=== PATIENT | male | born 1965 | race Caucasian/White ===

== ENCOUNTER 2025-02-10 00:13 | Day surgery (SDC) | payer OTHER, SELFPAY ==
--- OUTSIDE RECORDS SUMMARY | 2003-10-16 09:45 | XMS_ITS | Continuity of Care Document ---
Author Organization [facility] Address [address] [place] [address] [address] [place] [address] Phone Care Team Providers Care Groundskeeping Yardman Name Role Phone Sebas Nielsen DO Unavailable Unavailable Advance Directives Directive Yes / No Effective Date File Name No Information Encounters Encounter Description Practice Location Reason(s) For Visit Diagnoses Date Provider Providers Copied on Encounter [employer], [address] [place] [address] [address], [place], [place], [id number], [place] tel:[phone] [facility] No Information Gia Durham. [address] [place], [address], [place]. tel: [phone] Family History Family Member Type Diagnosis Age At Onset No Information Payers Payer name Insurance type Covered libertarian ID Authoriza tion(s) No Information Social History Type Description Quantity Date Captured Comments Sex Male Smoking Status No Information Chief Complaint And Reason For Visit No Information Reason For Referral Reason For Referral No Information History Of Present Illness Encounter Date Complaint History Of Prese nt Illness No Information Functional Status Date Functional Assessmen t No Information Instructions Date Instruction Additional Infor mation No Information Assessments Type Assessment Date No Information Patient Care Teams Name Effective Dates (start - stop) Status Members No Information
[2025-02-01 11:08] VITALS: BMI 22.9
--- OUTSIDE RECORDS SUMMARY | 2025-02-10 00:17 | XMS_ITS | Patient Health Record ---
Author Organization [facility] Address [address] [place] [address] Care Team Providers Care Heater Helper Forge Name Role Phone Levi Moss Primary Care Provider [phone] Delmar Keller Unavailable [phone] Allergies Allergen (clinical drug ingredient) Drug/Non Drug Allergy documented on EMR Reaction Allergy Type Onset Date Status Erythrocin rash Drug Allergy Active Reason For Referral No Information Social History Tobacco Use: Social History Observation Description Date Details (start date - stop date) Never Smoker NA - NA Tobacco Control (Standard) Question Answer Notes Tobacco use: Nonsmoker Section Notes: Problems Problem Type SNOMED Code ICD Code Onset Dates Problem Status W/U Status Risk Notes Problem Cardiac arrhythmia (212295106) Irregular heart rate (I49.9) Active confirmed Vital Signs Heart Rate 50 /min 01/18/2025 Temperature 97.9 degrees Fahrenheit 01/18/2025 Respiratory Rate 16 /min 01/18/2025 Blood pressure diastolic 60 mm Hg 01/18/2025 Oximetry 98 % 01/18/2025 Height 5 ft 10 in in 01/18/2025 Blood pressure systolic 98 mm Hg 01/18/2025 Weight 165 lbs 01/18/2025 BMI 23.67 kg/m2 01/18/2025 Encounters Encounter Location Date Provider Diagnosis [facility] [address] [place] [address] 01/18/2025 Delmar Keller Encounter to establish care with new doctor Z76.89 and Irregular heart rate I49.9 Assessments Encounter Date Diagnosis (ICD Code) Assessment Notes Treatment Notes Treatment Clinical Notes Section Notes 01/18/2025 Encounter to establish care with new doctor (ICD-10 - Z76.89) 01/18/2025 Irregular heart rate (ICD-10 - I49.9) Patient was advised he needs an EKG Plan Of Treatment No Information Insurance Providers Payer Name Payer Address Payer Phone Subscriber Number Group Number Insured Name Patient Relationship to Insured Coverage Start Date Coverage End Date [employer] [address] [place] [address] [id number] Herman Dowell Self - patient is the insured 8 Medical (General) History Surgical History Surgery Date(Month/Year) growth removed from right kapoor 1983
--- OUTSIDE RECORDS SUMMARY | 2025-02-10 00:17 | XMS_ITS | Clinical Summary ---
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
--- OUTSIDE RECORDS SUMMARY | 2025-02-10 00:17 | XMS_ITS | Patient Health Record ---
Author Organization [facility] Address [address] [place], [place] [id number] Care Team Providers Care International Account Executive Name Role Phone FREDDY ROBERTO DO Primary Care Provider UnavailAngelina Vides Unavailable [phone] Allergies Allergen (clinical drug ingredient) Drug/Non Drug Allergy documented on EMR Reaction Allergy Type Onset Date Status erythromycin Erythromycin Unknown Drug Allergy A ctive Reason For Referral No Information Immunizations Vaccine Route Administration Date Status Comme nts Influenza, unspecified formu lation (CPT 93645 Inactive) Unknown 12/08/2018 Administered Pneumococcal polysaccharide PPV23 Unknown 12/22/2019 Re fused Influenza, unspecified formu lation (CPT 46400 Inactive) Unknown 12/10/2022 Refused Pneumococcal polysaccharide PPV23 Unknown 12/10/2022 Re fused Influenza, unspecified formu lation (CPT 36667 Inactive) Unknown 11/29/2024 Refused Pneumococcal polysaccharide PPV23 Unknown 11/29/2024 Re fused Social History Tobacco Use: Social History Observation Description Date Details (start date - stop date) Never Smoker NA - NA Tobacco Use/Smoking Question Answer Notes Are you a nonsmoker Problems Problem Type SNOMED Code ICD Code Onset Dates Problem Status W/U Status Risk Notes Problem Verruca vulgaris (66218071) Viral wart, unspecified (B07.9) Active confirmed Patient says these lesions come and go and does not want to have them treated at this time. 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 Patient was warned of the side effects including large blisters, pain, scarring, secondary infection and recurrence. Patient was instructed to bathe normally and treat with topical antibiotics and a bandage once the blisters unroof and the sites are healed. Written instructions were given. Problem Multiple benign melanocytic nevi (045511665) Multiple nevi (D22.9) Active confirmed Went over with patient how to monitor lesions for changes indicative of malignancy and sun protection methods. Vital Signs Weight 170 lbs 11/29/2024 Encounters Encounter Location Date Provider Diagnosis [facility] [address] [place], [place] [id number] 11/29/2024 Angelina Franco Neoplasm of uncertai n behavior D48.9 ; Multiple nevi D22.9 ; Actinic keratoses L57.0 and Viral wart, unspecified B07.[address] [facility] [address] [place], [place] 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 Patient tolerated the procedure well and was given postoperative written instructions. Patient will contact office if any signs of infection, hypersensitivity reaction or contact dermatitis develop. 11/29/2024 Multiple nevi (ICD-10 - D22.9) Went over with patient how to monitor lesions for changes indicative of malignancy and sun protection methods. 11/29/2024 Actinic keratoses (ICD-10 - L57.0) Lesions were treated with cryotherapy for 15 seconds a piece today in my office as per procedure note.. Patient was warned of the side effects including large blisters, pain, scarring, secondary infection and recurrence. Patient was instructed to bathe normally and treat with topical antibiotics and a bandage once the blisters unroof and the sites are healed. Written instructions were given. 11/29/2024 Viral wart, unspecified (ICD-10 - B07.9) Patient says these lesions come and go and does not want to have them treated at this time. Plan Of Treatment Pending Test Test Name Order Date Skin, Shave Biopsy 11/29/2024 Insurance Providers Payer Name Payer Address Payer Phone Subscriber Number Group Number Insured Name Patient Relationship to Insured Coverage Start Date Coverage End Date [facility] [address] [address] [place], [place] [id number] [id number] Self - patient is the insured Medical (General) History Medical History History ICD Code Colitis
--- OUTSIDE RECORDS SUMMARY | 2025-02-10 00:17 | XMS_ITS | Clinical Summary ---
Author Organization [facility] Address [address] [place] [address] Care Team Providers Care Mini Baccarat Dealer Name Role Phone Frankie Iglesias DO Primary Care Provider [phone] Source Comments [facility],non-owned Affiliates and Associated Physician Practices is amultiple site organization consisting of ambulatory clinics and hospital sitesin [place], [place] and [place]. This disclosure is being madepursuant to the Care Everywhere program and may not contain all information available regarding this patient. 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 Gender Identity Not on file Sexual Orientation Not on file Plan of Treatment Health Maintenance Due Date Last Done Comments COLOGUARD (AGES 45-75) - COL ON CA SCREENING 1965 COLON MONITORING 1965 COLONOSCOPY - COLON CA SCREENING 1965 CT COLONOGRAPHY - COLON CA SCREENING 1965 Colorectal Cancer Screening 1965 FIT - COLON CA SCREENING 1965 FLEX SIG - COLON CA SCREENING 1965 LIPID TESTING 1965 HIV SCREENING 1980 HEPATITIS C SCREENING 12/15/1983 DTAP/TDAP/TD VACCINES (1 - Tdap) 1984 HEPATITIS B VACCINE (1 of 3 - 19+ 3-dose series) 1984 PNEUMOCOCCAL VACCINE 50+ (1 of 1 - PCV) 12/20/2015 ZOSTER VACCINE (1 of 2) 12/20/2015 DEPRESSION SCREENING 04/27/2024 COVID-19 VACCINE (1 - 2023-2 5 season) 2024 INFLUENZA VACCINE (#1) 2024 HIB VACCINE Aged Out No longer eligi ble based on patient's age to complete this topic HPV VACCINE Aged Out No longer eligi ble based on patient's age to complete this topic MENINGOCOCCAL (Group B) VACC INE SHARED DECISION-MAKING Aged Out No longer eligibl e based on patient's age to complete this topic MENINGOCOCCAL GROUPS A/C/Y/W VACCINE Aged Out No longer eligible b ased on patient's age to complete this topic Care Teams Mini Baccarat Dealer Relationship Specialty Start Date End Date Frankie Iglesias DO PCP - General 03/11/22
--- OUTSIDE RECORDS SUMMARY | 2025-02-10 00:18 | XMS_ITS | Data Portability ---
Author Organization [facility] Address [address] [place] [address] Care Team Providers Care Parts Identifier Name Role Phone FREDDY CURRY Primary Care Provider [phone] Assessment Encounter Date Assessment Date Assessment LastModified by Organization Details LastModified Time 10/25/2024 10/25/2024 His history is suggestive of colitis the etiology of which is not clear I think that it is prudent for him to have a stat CT abdomen and pelvis to get delineated where we are as far as any inflammatory processes microabscesses or other pathology intra-abdominally Augmentin 875 b.i.d. brat diet blood work reviewed. About 4-6 weeks he will need a colonoscopy me know in a few days how he is doing Not available 10/25/2024 15:44:50 12/07/2024 12/07/2024 We will set him up with a colonoscopy for his colitis he is now awhile out I think it is safe to have the colonoscopies see me in a year Not available 12/11/2024 20:06:57 Plan of Treatment Reminders Order Date Submit Date Provider Last Modified By Organization Details Last Modified Time Details Appointments None recorded. Lab PSA, total, serum or plasma 2024 025 [facility] (Centralized Electronic Ordering - All Locations), Patient Can Go To The Location Of Their Choice, [address] 17:54:34 SARS CoV 2 RNA (COVID-19) , QL, rn case manager-PCR, respirator y specimen - pierce barbosa @ noon 2019 020 [facility] (Lab), [address], [place], [address], 0 16:55:34 Referral None recorded. Procedures colonoscop y procedure (PROC) 2024 025 [facility] - Gastroenterol [facility]gy, [address], [address], [place], [address], 5 10:46:56 Surgeries None recorded. Imaging CT, abdomen + pelvis, w/ contrast 2024 025 [facility] ([facility] Call Scheduling), [address], [place], [address], 5 19:26:04 Medication Orders None recorded. Patient TargetsNo targets recorded. Patient Instructions Encounter Date Encounter Id Patient Instructions Last Modified By Organization Details Last Modified Time 10/05/2019 [id number] Reviewed the following recommendations: -Stay home and separate from others as much as possible. -Monitor your symptoms and seek medical attention for trouble breathing, persistent chest pain, confusion, or bluish lips or face. -Wear a mask if you must be around other people. -Wash your hands often for 20 seconds with soap and water and clean high-touch surfaces daily -You may discontinue home isolation if your symptoms are improving, it has been 10 days since symptoms started, and you have been fever free for at least 3 days. [email or web address] Not available 10/05/2019 11:24:18 10/25/2024 [id number] A healthy lifestyle: care instructions [email or web address] Not available 10/25/2024 17:30:59 12/07/2024 [id number] eating healthy foods: care instructions [email or web address] Not available 12/07/2024 16:20:44 Reason for Referral None Reported. Results Created Date Observation Date Name Description Value Unit Range Abnormal Flag Note LastModifiedBy Organization Detail LastModifiedTime 10/05/19 20 10/05/2019 SARS CoV 2 RNA (COVI D-19) , QL, rn case manager-P CR, respi rator y speci men sars - cov - 2 PCR NEGATI VE mL Not Available [facility] (Lab) [address] [facility], [place], [address], 10/19/2019 06:48:51 10/05/19 20 10/05/2019 SARS CoV 2 RNA (COVI D-19) , QL, rn case manager-P CR, respi rator y speci men covidcom1 COMME NTS: This assay is desig neal to detec t the RdRp and N genes of SARS- CoV-2 using nucle ic acid ampli ficat ion. A negat mary resul t does not precl ude the possi bilit y of 2019- nCoV infec tion since the adequ acy of sampl e colle ction and/o r low viral burde n may resul t in the prese nce of viral nucle ic acids level s below the sydni tical sensi tivit y of this test metho d. Not Available [facility] (Lab) [address] [facility], [place], [address], 10/19/2019 06:48:51 10/05/19 20 10/05/2019 SARS CoV 2 RNA (COVI D-19) , QL, rn case manager-P CR, respi rator y speci men covidcom2 Posit mary resul ts are indic ative of the prese nce of SARS- CoV-2 RNA and do not rule out bacte rial infec tion or co-in fecti on with other virus es. Not Available [facility] (Lab) [address] [facility], [place], [address], 10/19/2019 06:48:51 10/05/19 20 10/05/2019 SARS CoV 2 RNA (COVI D-19) , QL, rn case manager-P CR, respi rator y speci men covidcom3 Test resul ts shoul d be used along with other clini carlos obser vatio ns, patie nt histo ry, epide miolo gical infor matio n and labor atory data in rupa wesley the diagn osis. Not Available [facility] (Lab) [address] [facility], [place], [address], 10/19/2019 06:48:51 10/05/19 20 10/05/2019 SARS CoV 2 RNA (COVI D-19) , QL, rn case manager-P CR, respi rator y speci men covidcom4 This test has recei bryce FDA Emerg ency Use Autho rizat ion and has been verif ied by [facility] . This test is only autho rized for the durat ion of the decla ratio n and the circu mstan rafaela that exist to justi fy the autho rizat ion of the emerg ency use of in vitro diagn ostic tests for the detec tion of SARS- CoV-2 virus and/o r diagn osis of COVID -19 infec tion under secti on 564 (b) (1) of the Act. 11 U.S.C . 360bb b-3 (b) (1), unles s the autho rizat ion is termi nated or revok ed soone r. Not Available [facility] (Lab) [address] [place], [address], 10/19/2019 06:48:51 10/05/19 20 10/05/2019 SARS CoV 2 RNA (COVI D-19) , QL, rn case manager-P CR, respi rator y speci men covidcom5 [facility] is certi fied under CLIA- 88 as quali fied to perfo rm high compl exity testi ng. This testi ng was perfo rmed in the [facility] [place] [address] (CLIA Licen se #[id number], CAP #[id number], AU-ID #[id number]). Not Available [facility] (Lab) [address] [place], [address], 10/19/2019 06:48:51 10/05/19 20 10/05/2019 SARS CoV 2 RNA (COVI D-19) , QL, rn case manager-P CR, respi rator y speci men covidcom6 Facts heet for healt hcare provi ders: https ://ww w.fda .gov/ media /1362 56/do wnloa d Facts heet for patie nts: https ://ww w.fda .gov/ media /1362 57/do wnloa d Not Available [facility] ([facility]) [address], [place], [address], 10/19/2019 06:48:51 03/27/20 22 03/27/2022 CBC W Diffe renti al panel , metho d unspe cifie d - Blood white blood cells text: 4.2-10 .8 Not Available Not Available 10/26/2024 16:16:40 03/27/20 22 03/27/2022 CBC W Diffe renti al panel , metho d unspe cifie d - Blood red blood cells text: 4.10-5 .80 Not Available Not Available 10/26/2024 16:16:40 03/27/20 22 03/27/2022 CBC W Diffe renti al panel , metho d unspe cifie d - Blood hemoglobin text: 13.2-1 7.0 Not Available Not Available 10/26/2024 16:16:40 03/27/20 22 03/27/2022 CBC W Diffe renti al panel , metho d unspe cifie d - Blood hematocrit text: 39.3-5 0.0 Not Available Not Available 10/26/2024 16:16:40 03/27/20 22 03/27/2022 CBC W Diffe renti al panel , metho d unspe cifie d - Blood mean red cell volume text: 80.0-9 7.0 Not Available Not Available 10/26/2024 16:16:40 03/27/20 22 03/27/2022 CBC W Diffe renti al panel , metho d unspe cifie d - Blood mean red cell hemoglobin text: 27.0-3 3.0 Not Available Not Available 10/26/2024 16:16:40 03/27/20 22 03/27/2022 CBC W Diffe renti al panel , metho d unspe cifie d - Blood mean RBC HGB concentratio n text: 31.0-3 6.0 Not Available Not Available 10/26/2024 16:16:40 03/27/20 22 03/27/2022 CBC W Diffe renti al panel , metho d unspe cifie d - Blood red cell distribution width text: 11.8-1 5.5 Not Available Not Available 10/26/2024 16:16:40 03/27/20 22 03/27/2022 CBC W Diffe renti al panel , metho d unspe cifie d - Blood platelets text: 150-40 0 Not Available Not Available 10/26/2024 16:16:40 03/27/20 22 03/27/2022 CBC W Diffe renti al panel , metho d unspe cifie d - Blood mean platelet volume text: 9.0-12 .4 Not Available Not Available 10/26/2024 16:16:40 03/27/20 22 03/27/2022 CBC W Diffe renti al panel , metho d unspe cifie d - Blood neutrophils text: 39.0-7 2.0 Not Available Not Available 10/26/2024 16:16:40 03/27/20 22 03/27/2022 CBC W Diffe renti al panel , metho d unspe cifie d - Blood lymphocytes text: 16.0-4 7.0 Not Available Not Available 10/26/2024 16:16:40 03/27/20 22 03/27/2022 CBC W Diffe renti al panel , metho d unspe cifie d - Blood monocytes text: 5.0-12 .0 Not Available Not Available 10/26/2024 16:16:40 03/27/20 22 03/27/2022 CBC W Diffe renti al panel , metho d unspe cifie d - Blood eosinophils text: 1.0-7. 0 Not Available Not Available 10/26/2024 16:16:40 03/27/20 22 03/27/2022 CBC W Diffe renti al panel , metho d unspe cifie d - Blood basophils text: 0.0-2. 0 Not Available Not Available 10/26/2024 16:16:40 03/27/20 22 03/27/2022 CBC W Diffe renti al panel , metho d unspe cifie d - Blood immature granulocytes text: 0.00-0 .50 Not Available Not Available 10/26/2024 16:16:40 03/27/20 22 03/27/2022 CBC W Diffe renti al panel , metho d unspe cifie d - Blood neutrophils, absolute count text: 1.5-8. 0 Not Available Not Available 10/26/2024 16:16:40 03/27/20 22 03/27/2022 CBC W Diffe renti al panel , metho d unspe cifie d - Blood lymphocytes, absolute count text: 1.07-3 .43 Not Available Not Available 10/26/2024 16:16:40 03/27/20 22 03/27/2022 CBC W Diffe renti al panel , metho d unspe cifie d - Blood monocytes, absolute count text: 0.29-0 .99 Not Available Not Available 10/26/2024 16:16:40 03/27/20 22 03/27/2022 CBC W Diffe renti al panel , metho d unspe cifie d - Blood eosinophils, absolute count text: 0.02-0 .53 Not Available Not Available 10/26/2024 16:16:40 03/27/20 22 03/27/2022 CBC W Diffe renti al panel , metho d unspe cifie d - Blood basophils, absolute count text: 0.01-0 .08 Not Available Not Available 10/26/2024 16:16:40 03/27/20 22 03/27/2022 CBC W Diffe renti al panel , metho d unspe cifie d - Blood immature granulocytes ,absolute text: 0.00-0 .05 Not Available Not Available 10/26/2024 16:16:40 03/27/20 22 03/27/2022 CBC W Diffe renti al panel , metho d unspe cifie d - Blood nucleated red blood cells text: -0 Not Available Not Available 10/26/2024 16:16:40 03/27/20 22 03/27/2022 CBC W Diffe renti al panel , metho d unspe cifie d - Blood NRBC# Not Available Not Availa ble 10/26/2024 16:16:40 03/27/20 22 03/27/2022 Compr ehens mary metab olic 1999 panel - Serum or Plasm a sodium text: 137-14 5 Not Available Not Available 10/26/2024 16:16:39 03/27/20 22 03/27/2022 Compr ehens mary metab olic 2000 panel - Serum or Plasm a potassium text: 3.5-5. 1 Not Available Not Available 10/26/2024 16:16:39 03/27/20 22 03/27/2022 Compr ehens mary metab olic 2000 panel - Serum or Plasm a chloride text: 98-107 Not Available Not Available 10/26/2024 16:16:39 03/27/20 22 03/27/2022 Compr ehens mary metab olic 2000 panel - Serum or Plasm a carbon dioxide text: 22-30 high Not Available Not Available 10/26/2024 16:16:39 03/27/20 22 03/27/2022 Compr ehens mary metab olic 2000 panel - Serum or Plasm a anion gap text: 14-22 low Not Available Not Available 10/26/2024 16:16:39 03/27/20 22 03/27/2022 Compr ehens mary metab olic 2000 panel - Serum or Plasm a glucose text: 70-99 Not Available Not Available 10/26/2024 16:16:39 03/27/20 22 03/27/2022 Compr ehens mary metab olic 2000 panel - Serum or Plasm a BUN text: 8-19 Not Available Not Available 10/26/2024 16:16:39 03/27/20 22 03/27/2022 Compr ehens mary metab olic 2000 panel - Serum or Plasm a creatinine text: 0.66-1 .25 Not Available Not Available 10/26/2024 16:16:39 03/27/20 22 03/27/2022 Compr ehens mary metab olic 2000 panel - Serum or Plasm a GFR >60 Refer ence Range : [place] ge GFR Healt hy Adult : >60 mL/mi n/1.7 3 m2 Chron ic Kidne y Disea se: 15-60 mL/mi n/1.7 3 m2 Kidne y Failu re: <15/m L/min /1.73 m2 www.n iddk. nih.g ov The MDRD study equat ion has not been valid ated in child georges <18 years of age; pregn ant women ; the elder ly >85 years of age; or in some racia l or ethni c subgr oups, such as Hispaula nics. Outsi de the valid ated jessica eters , estim ated GFR is less accur ate, requi ring clini carlos judgm ent on a case- by-ca se basis . Clini carlos inter preta tion for other races and ages must be made by the clini raghav. The MDRD study equat ion has not been valid ated for the evalu ation of serum creat inine relat ed to nutri demi l statu s or medic ation usage . For perso ns <18 years of age, a pedia tric GFR calcu lator is avail able on the [facility] websi te: https ://franco jones.sandro lockhart.o rg/pr ofess ional s/kdo qi/gf r_cal culat or Not Available Not Available 10/26/2024 16:16:39 03/27/20 22 03/27/2022 Compr ehens mary metab olic 1999 panel - Serum or Plasm a alkaline phosphatase text: 38-126 Not Available Not Available 10/26/2024 16:16:39 03/27/20 22 03/27/2022 Compr ehens mary metab olic 2000 panel - Serum or Plasm a alanine aminotransfe rase text: 0-50 Not Available Not Available 10/26/2024 16:16:39 03/27/20 22 03/27/2022 Compr ehens mary metab olic 2000 panel - Serum or Plasm a aspartate aminotransfe rase text: 15-46 Not Available Not Available 10/26/2024 16:16:39 03/27/20 22 03/27/2022 Compr ehens mary metab olic 2000 panel - Serum or Plasm a bilirubin, total text: 0.20-1 .30 Not Available Not Available 10/26/2024 16:16:39 03/27/20 22 03/27/2022 Compr ehens mary metab olic 2000 panel - Serum or Plasm a calcium text: 8.4-10 .2 Not Available Not Available 10/26/2024 16:16:39 03/27/20 22 03/27/2022 Compr ehens mary metab olic 1999 panel - Serum or Plasm a total protein text: 6.3-8. 2 Not Available Not Available 10/26/2024 16:16:39 03/27/20 22 03/27/2022 Compr ehens mary metab olic 2000 panel - Serum or Plasm a albumin text: 3.4-5. 0 Not Available Not Available 10/26/2024 16:16:39 03/27/20 22 03/27/2022 Compr ehens mary metab olic 2000 panel - Serum or Plasm a globulin text: 2.6-4. 2 Not Available Not Available 10/26/2024 16:16:39 03/27/20 22 03/27/2022 Compr ehens mary metab olic 2000 panel - Serum or Plasm a A/G ratio text: 1.0-2. 0 Not Available Not Available 10/26/2024 16:16:39 03/27/20 22 03/27/2022 Lipid 1996 panel - Serum or Plasm a triglyceride s text: 0-150 NIH ADRIANNA NSUS REPOR T RECOM MENDA TION FOR TRIGL YCERI SHWETA: ADULT CHILD LOW RISK: <150 ----- BODER LINE: 150-1 99 ----- HIGH RISK: >200 ----- Not Available Not Available 10/26/2024 16:16:39 03/27/20 22 03/27/2022 Lipid 1996 panel - Serum or Plasm a HDL cholesterol text: 40- Not Available Not Available 10/26/2024 16:16:39 03/27/20 22 03/27/2022 Lipid 1996 panel - Serum or Plasm a cholesterol in LDL [mass/volume ] in serum or plasma text: 0-130 NIH ADRIANNA NSUS REPOR T RECOM MENDA TIONS FOR LDL: ADULT CHILD LOW RISK <130 <110 (OPTI MAL LDL) <100 ----- BORDE RLINE : 130-1 59 ----- HIGH RISK: >160 >130 A TRIGL YCERI DE RESUL T >400 INVAL IDATE S THE CALCU LATIO N FOR LDL FRACT IONAT ION - THE LDL RESUL T WILL NOT BE REPOR DANIELLA. Not Available Not Available 10/26/2024 16:16:39 03/27/20 22 03/27/2022 Lipid 1996 panel - Serum or Plasm a cholesterol text: 140-19 9 high NIH ADRIANNA NSUS RECOM MENDA TION FOR JORGE STERO L: ADULT CHILD LOW RISK: <200 <170 BORDE RLINE : <200- 239 ----- HIGH RISK: >240 >200 Not Available Not Available 10/26/2024 16:16:39 12/08/19 25 12/15/2024 PROST ATE SPECI FIC ANTIG EN prostate specific antigen 1.061 NG/mL This PSA resul t was deter mined using the Beckm an chemi lumin ometr ic immun oassa y and value s obtai neal canno t be evalu ated inter weir eably with diffe rent assay metho ds or kits. This PSA resul t alone canno t be inter prete d as absol arturo evide nce of the prese nce or absen ce of disea se. Refer ence Range : >=40y : 97% of contr ols are <4.0. PSA level s have been repor daniella to corre late with prost ate size. Value s >4.0 are commo n in patie nts with prost atic hyper plasi a. Not Available [facility] [address] [facility], [place], [address], 12/16/2024 06:15:26 10/26/1910/25/2024 CT, abdom en + pelvi s, w/ contr ast No observ ation record ed. [facility] [address] [place], [address], 10/26/2024 13:15:13 Result Notes None recorded. Problems Name Problem SNOMED Code Status Onset Date Resolution Date Notes Provider Name and Address Organization Details Recorded Time Abdominal pain 53663288 Active 2024 PAULIE Kelly, [place] - [facility] 12:44:30 Rectal hemorrhage 03936784 Active 2024 PA[place], [place] [facility] 12:44:31 Dyslipidemia 334543569 Active 2024 PAULIE [place], [place] - [facility] 12:44:32 Problem Notes None recorded. Medical Equipment None Reported. Allergies Allergen ID Allergen Name Allergen Category Reaction Reaction Severity Criticality Documentation Date Start Date Code Code System Note Provider Name and Address Organization Details Recorded Time [id number] erythromy ifrah medicatio n rash Not available Not available 10/24/2024 4053 RxNorm [facility] 12:49:56 Medications Name Sig Start Date Stop Date Status Note LastModified by Organization Details LastModified Time atovaquone 250 mg-proguani l 100 mg tablet START 2 DAYS PRIOR TO TRIP, TAKE 1 EVERY DAY, AND CONTINUE FOR 7 DAYS UPON RETURN 10/25 completed Not Available Not Available Not Available ranitidine 150 mg tablet 10/25 completed Not Available Not Available Not Available amoxicillin 875 mg-potassiu m clavulanate 125 mg tablet Take 1 tablet twice a day by oral route for 7 days. 11/07 completed Not Available Not Available Not Available Vitals Date Recorded Body height Body mass index (BMI) Body weight Heart rate Oxygen saturation Oxygen saturation in Arterial blood by Pulse oximetry Systolic And Diastolic Provider Name and Address Organization Details Last Updated DateTime 5 177.8 cm 23.5 kg/m2 84056.5 1 g 52 /min 98 % 98 % 102/72 mm[Hg] Narcisa Perry MA [facility] 5 13:57:23 Date Recorded Body height Body mass index (BMI) Body weight Heart rate Oxygen saturation Oxygen saturation in Arterial blood by Pulse oximetry Systolic And Diastolic Provider Name and Address Organization Details Last Updated DateTime 5 177.8 cm 23.4 kg/m2 34820.9 9 g 58 /min 97 % 97 % 104/72 mm[Hg] Yojana Armendariz MA [facility] 5 14:42:15 Social History Question Answer Notes LastModified by Organizat ion Details LastModified Time Tobacco Smoking Status Never Smoker PAULIE Mendoza [facility] 10/25/2024 13:58:06 Are You Blind Or Do You Have Difficulty Seeing? No Information n ot available 10/25/2024 What Is Your Level Of Caffeine Consumption? Occasional Information not available 10/25/2024 In The 14 Days Before Symptom Onset, Have You Had Close Contact With A Laboratory-confirm ed COVID-19 While That Case Was Ill? No Information n ot available 10/25/2024 In The 14 Days Before Symptom Onset, Have You Had Close Contact With A Person Who Is Under Investigation For COVID-19 While That Person Was Ill? No Information not available 10/25/2024 Have You Been To An Area Known To Be High Risk For COVID-19? No Information not available 10/25/2024 Are You Deaf Or Do You Have Serious Difficulty Hearing? No Information not available 10/25/2024 Are There Any Guns Present In Your Home? No Information not available 10/25/2024 What Was The Date Of Your Most Recent Tobacco Screening? 12/07/2024 [email or web address] Information not available 12/07/2024 Do You Use Your Seat Belt Or Car Seat Routinely? Yes Information not available 10/25/2024 Do You Have Smoke And Carbon Monoxide Detectors In Your Home? Yes Information not available 10/25/2024 Do You Use Sunscreen Routinely? No Information not available 10/25/2024 Has Tobacco Cessation Counseling Been Provided? No Information not available 10/25/2024 Sex: Unknown Functional Status Question Answer Note LastModified by Organizat ion Details LastModified Time Do you use any illicit or recreational drugs? No Information not available 10/25/2024 Do you or have you ever used any other forms of tobacco or nicotine? No Information not available 10/25/2024 What is your level of alcohol consumption? Occasional Information not available 10/25/2024 Are you able to care for yourself independently? Yes Information not available 10/25/2024 Mental Status None recorded. Family History Nothing Reported. Medical History No medical history recorded. Immunizations Vaccine Type Date Status Note Provider Nam e and Address Organization Details Recorded Time Influenza, split virus, trivalent, preservative 7 completed Not Available [facility] 12/07/2024 14:20:49 Influenza, split virus, quadrivalent, PF 8 completed Not Available [facility] 12/07/2024 14:20:49 COVID-19, mRNA, LNP-S, PF, 100 mcg/0.5mL dose or 50 mcg/0.25mL dose 1 completed Not Available [facility] 12/07/2024 14:20:49 COVID-19, mRNA, LNP-S, PF, 100 mcg/0.5mL dose or 50 mcg/0.25mL dose 1 completed Not Available [facility] 12/07/2024 14:20:49 COVID-19, mRNA, LNP-S, PF, 100 mcg/0.5mL dose or 50 mcg/0.25mL dose 2 completed Not Available [facility] 12/07/2024 14:20:49 Influenza, MDCK, quadrivalent, preservative 2 completed Not Available [facility] 12/07/2024 14:20:49 zoster recombinant 2 completed Not Available [facility] 12/07/2024 14:20:49 zoster recombinant 2 completed Not Available [facility] 12/07/2024 14:20:49 yellow fever live 4 completed Not Available [facility] 12/07/2024 14:20:49 Past Encounters Encounter ID Performer Location Encounter Start Date Encounter Closed Date Diagnosis/Indication Diagnosis SNOMED-CT Code Diagnosis ICD10 Code Diagnosis IMO Codes Diagnosis Note [id number] Gisela Quinn MD [facility] [address] [place] [address] 10/05/2019 09:50:14 10/06/2019 07:33:35 Suspected COVID-19 486518332 Z03.086 [id number] Freddy Curry MD [facility] (Adult Med) [address] [place] [id number] 10/25/2024 13:44:11 10/25/2024 14:22:37 Body mass index 20-24 - normal 103828511 Z68.23 24168272 Abdominal pain 11204399 R10.9 [id number] Freddy Curry MD [facility] (Adult Med) [address] [place] [id number] 12/07/2024 14:17:08 12/07/2024 15:50:14 Normal weight 97027108 Z68.23 4279340130 BMI 23.4 Screening for malignant neoplasm of prostate 113200762 Z12.5 995626 Colitis 14641341 K52.9 29821 Health Concerns Section Related Observation LastModified by Organization Detai ls LastModified Time None Recorded Concern Status LastModified by Organization Details LastModified Time None Recorded Advance Directives Directive None Recorded Payers Insurance Date Sequence Insurance Name Policy Number Policy Terry Covered Member ID Terry Member ID Guarantor Name 10/25/2024 2 [employer] - OPEN ACCESS [address] Amaro [id number] Herman Amaro 12/07/2024 1 [facility] Herman Amaro [id number] Herman Amaro 12/07/2024 1 [facility] [id number] Herman Amaro [id number] Herman Amaro Notes Date Note Type Note Provider Name and Address Organization Details Recorded Time 10/05/2019 text/html COVID ScreeningReported by PatientHPIFor onset/duration of fever, patient reportsno fever. For associated symptoms, patient reportsno coughandno shortness of breath. COVID-19 Symptoms August 2019Reported by PatientUpper Respiratory SymptomsFor covid-19 signs and symptoms, patient reportscough resolved,fever resolved,shortness of breath resolved,chills resolved,repeated shaking with chills resolved,muscle pain resolved,headache resolved,sore throat resolved,loss of taste or smell resolved,vomiting or diarrhea resolved,fatigue resolved,anorexia resolved,chills same, andvomiting or diarrhea same. For associated symptoms, patient reportsno sputum production,no wheezing,no runny nose,no vomiting,no diarrhea,no body aches,no nausea,no change in mental status,no hypotension, andno tachycardia.ROS as noted in the HPI pt states that he and his have had diarrhea and chills since yesterday JOE THOMAS NP Attn: Accounting,[address] [facility], [place], [address], [place] - [facility] 10/05/2019 11:24:42 10/25/2024 text/html 58-year-old with 122 days we woke up at 2:30 a.m. in the morning and he had crampy lower abdominal pain very severe intense sweating and possibly some chills went to the bathroom lots of diarrhea went back to bed couple of hours a woken him again with severe pain and feeling very poorly some nausea without vomiting and then he noticed that he was passing lots of blood very weak pain has continued in his lower abdomen he is weak but he does not describe any shortness of breath he states he is not dizzy when he stands up no previous episodes last colonoscopy about 9 years ago no travel or other sick people in the family he did pass what sounds like some mucoid stools as well but the predominant feature is bloody stools with painful lower abdominal symptomatology that is severe painAllergies erythromycin 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
--- OUTSIDE RECORDS SUMMARY | 2025-02-10 00:18 | XMS_ITS | Data Portability ---
Author Organization [facility] [employer], Main Office Address [address] [place] [address] Assessment Encounter Date Assessment Date Assessment LastModified by Organization Details LastModified Time 11/05/2022 11/05/2022 Low-fat diet follow-up in 1 year which is the patient's request [email or web address] Not available 11/06/2022 18:25:24 Plan of Treatment Reminders Order Date Submit Date Provider Last Modified By Organization Details Last Modified Time Details Appointments None record ed. Lab None record ed. Referral None record ed. Procedures None record ed. Surgeries None record ed. Imaging None record ed. Medication Orders None record ed. Patient TargetsNo targets recorded. Patient InstructionsNo instructions recorded. Reason for Referral None Reported. Results Created Date Observation Date Name Description Value Unit Range Abnormal Flag Note LastModifiedBy Organization Detail LastModifiedTime 03/27/2003/27/2022 URINA LYSIS COMPL ETE, IRIS color light- yellow Not Available [facility] (Lab) [address] [place], [address], 03/27/2022 11:07:53 03/27/20 22 03/27/2022 URINA LYSIS COMPL ETE, IRIS appear clear Not Available [facility] (Lab) [address] [place], [address], 03/27/2022 11:07:53 03/27/20 22 03/27/2022 URINA LYSIS COMPL ETE, IRIS specific gravity 1.005 1.001- 1.030 Not Available [facility] (Lab) [address] [place], [address], 03/27/2022 11:07:53 03/27/20 22 03/27/2022 URINA LYSIS COMPL ETE, IRIS pH 6.0 pH_un its 5.0-9. 0 Not Available [facility] (Lab) [address] [place], [address], 03/27/2022 11:07:53 03/27/20 22 03/27/2022 URINA LYSIS COMPL ETE, IRIS leukocytes negati ve duncan/u L negati ve- Not Available [facility] (Lab) [address] [place], [address], 03/27/2022 11:07:53 03/27/20 22 03/27/2022 URINA LYSIS COMPL ETE, IRIS nitrite negati ve negati ve- Not Available [facility] (Lab) [address] [place], [address], 03/27/2022 11:07:53 03/27/20 22 03/27/2022 URINA LYSIS COMPL ETE, IRIS protein negati ve mg/dL negati ve- Not Available [facility] (Lab) [address] [place], [address], 03/27/2022 11:07:53 03/27/20 22 03/27/2022 URINA LYSIS COMPL ETE, IRIS glucose normal mg/dL normal - Not Available [facility] (Lab) [address] [place], [address], 03/27/2022 11:07:53 03/27/20 22 03/27/2022 URINA LYSIS COMPL ETE, IRIS ketones negati ve mg/dL negati ve- Not Available [facility] (Lab) [address] [place], [address], 03/27/2022 11:07:53 03/27/20 22 03/27/2022 URINA LYSIS COMPL ETE, IRIS urobilinogen normal mg/dL normal - Not Available [facility] (Lab) [address] [place], [address], 03/27/2022 11:07:53 03/27/20 22 03/27/2022 URINA LYSIS COMPL ETE, IRIS bilirubin negati ve mg/dL negati ve- Not Available [facility] (Lab) [address] [place], [address], 03/27/2022 11:07:53 03/27/20 22 03/27/2022 URINA LYSIS COMPL ETE, IRIS blood negati ve mg/dL negati ve- Not Available [facility] (Lab) [address] [place], [address], 03/27/2022 11:07:53 03/27/20 22 03/27/2022 URINA LYSIS COMPL ETE, IRIS white blood cells none /i??h pfi?? 0-8 Not Available [facility] (Lab) [address] [place], [address], 03/27/2022 11:07:53 03/27/20 22 03/27/2022 URINA LYSIS COMPL ETE, IRIS red blood cells none /i??h pfi?? 0-4 Not Available [facility] (Lab) [address] [place], [address], 03/27/2022 11:07:53 03/27/20 22 03/27/2022 URINA LYSIS COMPL ETE, IRIS bacteria occasi onal abnormal Not Available [facility] (Lab) [address] [place], [address], 03/27/2022 11:07:53 03/27/20 22 03/27/2022 URINA LYSIS COMPL ETE, IRIS mucous none /i??l pfi?? Not Available [facility] (Lab) [address] [place], [address], 03/27/2022 11:07:53 03/27/20 22 03/27/2022 URINA LYSIS COMPL ETE, IRIS squamous epithelial none /i??l pfi?? abnormal Not Available [facility] (Lab) [address] [place], [address], 03/27/2022 11:07:53 03/27/20 22 03/27/2022 PSA SCREE N PSA medicare screen 1.31 NG/mL 0.00-4 .00 Not Available [facility] (Lab) [address] [place], [address], 03/27/2022 10:56:44 03/27/20 22 03/27/2022 LIPID PANEL triglyceride s 95 mg/dL 0-150 NIH ADRIANNA NSUS REPOR T RECOM MENDA TION FOR TRIGL YCERI SHWETA: ADULT CHILD LOW RISK: <150 ----- BODER LINE: 150-1 99 ----- HIGH RISK: >200 ----- Not Available [facility] (Lab) [address] [place], [address], 03/27/2022 10:33:38 03/27/20 22 03/27/2022 LIPID PANEL HDL cholesterol 99 mg/dL 40- Not Available [facility] (Lab) [address] [place], [address], 03/27/2022 10:33:38 03/27/20 22 03/27/2022 LIPID PANEL LDL cholesterol, calculated 99 mg/dL 0-130 NIH ADRIANNA NSUS REPOR T RECOM MENDA TIONS FOR LDL: ADULT CHILD LOW RISK <130 <110 (OPTI MAL LDL) <100 ----- BORDE RLINE : 130-1 59 ----- HIGH RISK: >160 >130 A TRIGL YCERI DE RESUL T >400 INVAL IDATE S THE CALCU LATIO N FOR LDL FRACT IONAT ION - THE LDL RESUL T WILL NOT BE REPOR DANIELLA. Not Available [facility] (Lab) [address] [place], [address], 03/27/2022 10:33:38 03/27/20 22 03/27/2022 LIPID PANEL cholesterol 217 mg/dL 140-19 9 high NIH ADRIANNA NSUS RECOM MENDA TION FOR JORGE STERO L: ADULT CHILD LOW RISK: <200 <170 BORDE RLINE : <200- 239 ----- HIGH RISK: >240 >200 Not Available [facility] (Lab) [address] [place], [address], 03/27/2022 10:33:38 03/27/20 22 03/27/2022 COMPR EHENS SAIGE METAB OLIC PANEL sodium 141 mmol/ L 137-14 5 Not Available [facility] (Lab) [address] [place], [address], 03/27/2022 10:33:34 03/27/20 22 03/27/2022 COMPR EHENS SAIGE METAB OLIC PANEL potassium 4.0 mmol/ L 3.5-5. 1 Not Available [facility] (Lab) [address] [place], [address], 03/27/2022 10:33:34 03/27/20 22 03/27/2022 COMPR EHENS SAIGE METAB OLIC PANEL chloride 104 mmol/ L 98-107 Not Available [facility] (Lab) [address] [place], [address], 03/27/2022 10:33:34 03/27/20 22 03/27/2022 COMPR EHENS SAIGE METAB OLIC PANEL carbon dioxide 31 mmol/ L 22-30 high Not Available [facility] (Lab) [address] [place], [address], 03/27/2022 10:33:34 03/27/20 22 03/27/2022 COMPR EHENS SAIGE METAB OLIC PANEL anion gap 10.0 mmol/ L 14-22 low Not Available [facility] (Lab) [address] [place], [address], 03/27/2022 10:33:34 03/27/20 22 03/27/2022 COMPR EHENS SAIGE METAB OLIC PANEL glucose 77 mg/dL 70-99 Not Available [facility] (Lab) [address] [place], [address], 03/27/2022 10:33:34 03/27/20 22 03/27/2022 COMPR EHENS SAIGE METAB OLIC PANEL BUN 15 mg/dL 8-19 Not Available [facility] (Lab) [address] [place], [address], 03/27/2022 10:33:34 03/27/20 22 03/27/2022 COMPR EHENS SAIGE METAB OLIC PANEL creatinine 0.95 mg/dL 0.66-1 .25 Not Available [facility] (Lab) [address] [place], [address], 03/27/2022 10:33:34 03/27/20 22 03/27/2022 COMPR EHENS SAIGE METAB OLIC PANEL GFR >60 Refer ence Range : [place] ge GFR Healt hy Adult : >60 [...] or ethni c subgr oups, such as [facility] nics. Outsi de the valid ated jessica [...] calcu lator is avail able on the F websi te: [email or web address] :[email or web address] reyes/pr ofess ional s/kdo qi/gf r_cal culat or Not Available [facility] (Lab) [address] [facility] [place], [address], 03/27/2022 10:33:34 03/27/20 22 03/27/2022 COMPR EHENS SAIGE METAB OLIC PANEL alkaline phosphatase 44 U/L 38-126 Not Available [facility] (Lab) [address] [place], [address], 03/27/2022 10:33:34 03/27/20 22 03/27/2022 COMPR EHENS SAIGE METAB OLIC PANEL alanine aminotransfe rase 27 U/L 0-50 Not Available [facility] (Lab) [address] [place], [address], 03/27/2022 10:33:34 03/27/20 22 03/27/2022 COMPR EHENS SAIGE METAB OLIC PANEL aspartate aminotransfe rase 30 U/L 15-46 Not Available [facility] (Lab) [address] [place], [address], 03/27/2022 10:33:34 03/27/20 22 03/27/2022 COMPR EHENS SAIGE METAB OLIC PANEL bilirubin, total 0.70 mg/dL 0.20-1 .30 Not Available [facility] (Lab) [address] [place], [address], 03/27/2022 10:33:34 03/27/20 22 03/27/2022 COMPR EHENS SAIGE METAB OLIC PANEL calcium 9.2 mg/dL 8.4-10 .2 Not Available [facility] (Lab) [address] [place], [address], 03/27/2022 10:33:34 03/27/20 22 03/27/2022 COMPR EHENS SAIGE METAB OLIC PANEL total protein 7.2 g/dL 6.3-8. 2 Not Available [facility] (Lab) [address] [place], [address], 03/27/2022 10:33:34 03/27/20 22 03/27/2022 COMPR EHENS SAGIE METAB OLIC PANEL albumin 4.3 g/dL 3.4-5. 0 Not Available [facility] (Lab) [address] [place], [address], 03/27/2022 10:33:34 03/27/20 22 03/27/2022 COMPR EHENS SAIGE METAB OLIC PANEL globulin 2.9 g/dL 2.6-4. 2 Not Available [facility] (Lab) [address] [place], [address], 03/27/2022 10:33:34 03/27/20 22 03/27/2022 COMPR EHENS SAIGE METAB OLIC PANEL A/G ratio 1.5 ratio 1.0-2. 0 Not Available [facility] (Lab) [address] [place], [address], 03/27/2022 10:33:34 03/27/20 22 03/27/2022 CBC/C OMPLE TE BLD COUNT W/DIF F white blood cells 6.9 x10'3 /uL 4.2-10 .8 Not Available [facility] (Lab) [address] [place], [address], 03/27/2022 10:18:34 03/27/20 22 03/27/2022 CBC/C OMPLE TE BLD COUNT W/DIF F red blood cells 5.02 x10'6 /uL 4.10-5 .80 Not Available [facility] (Lab) [address] [place], [address], 03/27/2022 10:18:34 03/27/20 22 03/27/2022 CBC/C OMPLE TE BLD COUNT W/DIF F hemoglobin 15.2 g/dL 13.2-1 7.0 Not Available [facility] (Lab) [address] [place], [address], 03/27/2022 10:18:34 03/27/20 22 03/27/2022 CBC/C OMPLE TE BLD COUNT W/DIF F hematocrit 46.5 % 39.3-5 0.0 Not Available [facility] (Lab) [address] [place], [address], 03/27/2022 10:18:34 03/27/20 22 03/27/2022 CBC/C OMPLE TE BLD COUNT W/DIF F mean red cell volume 92.6 fL 80.0-9 7.0 Not Available [facility] (Lab) [address] [place], [address], 03/27/2022 10:18:34 03/27/20 22 03/27/2022 CBC/C OMPLE TE BLD COUNT W/DIF F mean red cell hemoglobin 30.3 pg 27.0-3 3.0 Not Available [facility] (Lab) [address] [place], [address], 03/27/2022 10:18:34 03/27/20 22 03/27/2022 CBC/C OMPLE TE BLD COUNT W/DIF F mean RBC HGB concentratio n 32.7 g/dL 31.0-3 6.0 Not Available [facility] (Lab) [address] [place], [address], 03/27/2022 10:18:34 03/27/20 22 03/27/2022 CBC/C OMPLE TE BLD COUNT W/DIF F red cell distribution width 13.0 % 11.8-1 5.5 Not Available [facility] (Lab) [address] [place], [address], 03/27/2022 10:18:34 03/27/20 22 03/27/2022 CBC/C OMPLE TE BLD COUNT W/DIF F platelets 253 x10'3 /uL 150-40 0 Not Available [facility] (Lab) [address] [place], [address], 03/27/2022 10:18:34 03/27/20 22 03/27/2022 CBC/C OMPLE TE BLD COUNT W/DIF F mean platelet volume 9.3 fL 9.0-12 .4 Not Available [facility] (Lab) [address] [place], [address], 03/27/2022 10:18:34 03/27/20 22 03/27/2022 CBC/C OMPLE TE BLD COUNT W/DIF F neutrophils 62.9 % 39.0-7 2.0 Not Available [facility] (Lab) [address] [place], [address], 03/27/2022 10:18:34 03/27/20 22 03/27/2022 CBC/C OMPLE TE BLD COUNT W/DIF F lymphocytes 25.5 % 16.0-4 7.0 Not Available [facility] (Lab) [address] [place], [address], 03/27/2022 10:18:34 03/27/20 22 03/27/2022 CBC/C OMPLE TE BLD COUNT W/DIF F monocytes 8.4 % 5.0-12 .0 Not Available [facility] (Lab) [address] [place], [address], 03/27/2022 10:18:34 03/27/20 22 03/27/2022 CBC/C OMPLE TE BLD COUNT W/DIF F eosinophils 1.9 % 1.0-7. 0 Not Available [facility] (Lab) [address] [place], [address], 03/27/2022 10:18:34 03/27/20 22 03/27/2022 CBC/C OMPLE TE BLD COUNT W/DIF F basophils 0.9 % 0.0-2. 0 Not Available [facility] (Lab) [address] [place], [address], 03/27/2022 10:18:34 03/27/20 22 03/27/2022 CBC/C OMPLE TE BLD COUNT W/DIF F immature granulocytes 0.4 % 0.00-0 .50 Not Available [facility] (Lab) [address] [place], [address], 03/27/2022 10:18:34 03/27/20 22 03/27/2022 CBC/C OMPLE TE BLD COUNT W/DIF F neutrophils, absolute count 4.37 x10'3 /uL 1.5-8. 0 Not Available [facility] (Lab) [address] [place], [address], 03/27/2022 10:18:34 03/27/20 22 03/27/2022 CBC/C OMPLE TE BLD COUNT W/DIF F lymphocytes, absolute count 1.77 x10'3 /uL 1.07-3 .43 Not Available [facility] (Lab) [address] [place], [address], 03/27/2022 10:18:34 03/27/20 22 03/27/2022 CBC/C OMPLE TE BLD COUNT W/DIF F monocytes, absolute count 0.58 x10'3 /uL 0.29-0 .99 Not Available [facility] (Lab) [address] [place], [address], 03/27/2022 10:18:34 03/27/20 22 03/27/2022 CBC/C OMPLE TE BLD COUNT W/DIF F eosinophils, absolute count 0.13 x10'3 /uL 0.02-0 .53 Not Available [facility] (Lab) [address] [place], [address], 03/27/2022 10:18:34 03/27/20 22 03/27/2022 CBC/C OMPLE TE BLD COUNT W/DIF F basophils, absolute count 0.06 x10'3 /uL 0.01-0 .08 Not Available [facility] (Lab) [address] [place], [address], 03/27/2022 10:18:34 03/27/20 22 03/27/2022 CBC/C OMPLE TE BLD COUNT W/DIF F immature granulocytes ,absolute 0.03 x10'3 /uL 0.00-0 .05 Not Available [facility] (Lab) [address] [place], [address], 03/27/2022 10:18:34 03/27/20 22 03/27/2022 CBC/C OMPLE TE BLD COUNT W/DIF F nucleated red blood cells 0.0 % -0 Not Available [facility] (Lab) [address] [place], [address], 03/27/2022 10:18:34 03/27/20 22 03/27/2022 CBC/C OMPLE TE BLD COUNT W/DIF F NRBC# 0.00 x10'3 /uL Not Available [facility] (Lab) [address] [place], [address], 03/27/2022 10:18:34 10/25/19 25 10/24/2024 CBC/C OMPLE TE BLD COUNT W/DIF F white blood cells 8.1 x10'3 /uL 4.2-10 .8 Not Available [facility] (Lab) [address] [place], [address], 10/24/2024 13:31:12 10/25/19 25 10/24/2024 CBC/C OMPLE TE BLD COUNT W/DIF F red blood cells 4.58 x10'6 /uL 4.10-5 .80 Not Available [facility] (Lab) [address] [place], [address], 10/24/2024 13:31:12 10/25/19 25 10/24/2024 CBC/C OMPLE TE BLD COUNT W/DIF F hemoglobin 14.1 g/dL 13.2-1 7.0 Not Available [facility] (Lab) [address] [facility] [place], [address], 10/24/2024 13:31:12 10/25/19 25 10/24/2024 CBC/C OMPLE TE BLD COUNT W/DIF F hematocrit 41.5 % 39.3-5 0.0 Not Available [facility] (Lab) [address] [facility] [place], [address], 10/24/2024 13:31:12 10/25/19 25 10/24/2024 CBC/C OMPLE TE BLD COUNT W/DIF F mean red cell volume 90.6 fL 80.0-9 7.0 Not Available [facility] (Lab) [address] [place], [address], 10/24/2024 13:31:12 10/25/19 25 10/24/2024 CBC/C OMPLE TE BLD COUNT W/DIF F mean red cell hemoglobin 30.8 pg 27.0-3 3.0 Not Available [facility] (Lab) [address] [place], [address], 10/24/2024 13:31:12 10/25/19 25 10/24/2024 CBC/C OMPLE TE BLD COUNT W/DIF F mean RBC HGB concentratio n 34.0 g/dL 31.0-3 6.0 Not Available [facility] (Lab) [address] [place], [address], 10/24/2024 13:31:12 10/25/19 25 10/24/2024 CBC/C OMPLE TE BLD COUNT W/DIF F red cell distribution width 13.2 % 11.8-1 5.5 Not Available [facility] (Lab) [address] [place], [address], 10/24/2024 13:31:12 10/25/19 25 10/24/2024 CBC/C OMPLE TE BLD COUNT W/DIF F platelets 229 x10'3 /uL 150-40 0 Not Available [facility] (Lab) [address] [place], [address], 10/24/2024 13:31:12 10/25/19 25 10/24/2024 CBC/C OMPLE TE BLD COUNT W/DIF F mean platelet volume 9.0 fL 9.0-12 .4 Not Available [facility] (Lab) [address] [place], [address], 10/24/2024 13:31:12 10/25/19 25 10/24/2024 CBC/C OMPLE TE BLD COUNT W/DIF F neutrophils 69.9 % 39.0-7 2.0 Not Available [facility] (Lab) [address] [place], [address], 10/24/2024 13:31:12 10/25/19 25 10/24/2024 CBC/C OMPLE TE BLD COUNT W/DIF F lymphocytes 21.9 % 16.0-4 7.0 Not Available [facility] (Lab) [address] [place], [address], 10/24/2024 13:31:12 10/25/19 25 10/24/2024 CBC/C OMPLE TE BLD COUNT W/DIF F monocytes 6.8 % 5.0-12 .0 Not Available [facility] (Lab) [address] [place], [address], 10/24/2024 13:31:12 10/25/19 25 10/24/2024 CBC/C OMPLE TE BLD COUNT W/DIF F eosinophils 0.5 % 1.0-7. 0 low Not Available [facility] (Lab) [address] [place], [address], 10/24/2024 13:31:12 10/25/19 25 10/24/2024 CBC/C OMPLE TE BLD COUNT W/DIF F basophils 0.5 % 0.0-2. 0 Not Available [facility] (Lab) [address] [place], [address], 10/24/2024 13:31:12 10/25/19 25 10/24/2024 CBC/C OMPLE TE BLD COUNT W/DIF F immature granulocytes 0.4 % 0.00-0 .50 Not Available [facility] (Lab) [address] [place], [address], 10/24/2024 13:31:12 10/25/19 25 10/24/2024 CBC/C OMPLE TE BLD COUNT W/DIF F neutrophils, absolute count 5.68 x10'3 /uL 1.5-8. 0 Not Available [facility] (Lab) [address] [place], [address], 10/24/2024 13:31:12 10/25/19 25 10/24/2024 CBC/C OMPLE TE BLD COUNT W/DIF F lymphocytes, absolute count 1.78 x10'3 /uL 1.07-3 .43 Not Available [facility] (Lab) [address] [place], [address], 10/24/2024 13:31:12 10/25/19 25 10/24/2024 CBC/C OMPLE TE BLD COUNT W/DIF F monocytes, absolute count 0.55 x10'3 /uL 0.29-0 .99 Not Available [facility] (Lab) [address] [place], [address], 10/24/2024 13:31:12 10/25/19 25 10/24/2024 CBC/C OMPLE TE BLD COUNT W/DIF F eosinophils, absolute count 0.04 x10'3 /uL 0.02-0 .53 Not Available [facility] (Lab) [address] [place], [address], 10/24/2024 13:31:12 10/25/19 25 10/24/2024 CBC/C OMPLE TE BLD COUNT W/DIF F basophils, absolute count 0.04 x10'3 /uL 0.01-0 .08 Not Available [facility] (Lab) [address] [place], [address], 10/24/2024 13:31:12 10/25/19 25 10/24/2024 CBC/C OMPLE TE BLD COUNT W/DIF F immature granulocytes ,absolute 0.03 x10'3 /uL 0.00-0 .05 Not Available [facility] (Lab) [address] [place], [address], 10/24/2024 13:31:12 10/25/19 25 10/24/2024 CBC/C OMPLE TE BLD COUNT W/DIF F nucleated red blood cells 0.0 % -0 Not Available [facility] (Lab) [address] [place], [address], 10/24/2024 13:31:12 10/25/19 25 10/24/2024 CBC/C OMPLE TE BLD COUNT W/DIF F NRBC# 0.00 x10'3 /uL Not Available [facility] (Lab) [address] [place], [address], 10/24/2024 13:31:12 10/25/19 25 10/24/2024 LIPID PANEL cholesterol 187 mg/dL 140-19 9 NIH ADRIANNA NSUS RECOM MENDA TION FOR JORGE STERO L: ADULT CHILD LOW RISK: <200 <170 BORDE RLINE : <200- 239 ----- HIGH RISK: >240 >200 Not Available [facility] (Lab) [address] [place], [address], 10/24/2024 13:44:38 10/25/19 25 10/24/2024 LIPID PANEL triglyceride s 160 mg/dL 0-150 high NIH ADRIANNA NSUS REPOR T RECOM MENDA TION FOR TRIGL YCERI SHWETA: ADULT CHILD LOW RISK: <150 ----- BODER LINE: 150-1 99 ----- HIGH RISK: >200 ----- Not Available [facility] (Lab) [address] [place], [address], 10/24/2024 13:44:38 10/25/19 25 10/24/2024 LIPID PANEL HDL cholesterol 80 mg/dL 40- Not Available [facility] (Lab) [address] [place], [address], 10/24/2024 13:44:38 10/25/19 25 10/24/2024 LIPID PANEL LDL cholesterol, calculated 75 mg/dL 0-130 NIH ADRIANNA NSUS REPOR T RECOM MENDA TIONS FOR LDL: ADULT CHILD LOW RISK <130 <110 (OPTI MAL LDL) <100 ----- ANIKA RLINE : 130-1 59 ----- HIGH RISK: >160 >130 A TRIGL YCERI DE RESUL T >400 INVAL IDATE S THE CALCU LATIO N FOR LDL FRACT IONAT ION - THE LDL RESUL T WILL NOT BE REPOR DANIELLA. Not Available [facility] (Lab) [address] [place], [address], 10/24/2024 13:44:38 10/25/19 25 10/24/2024 COMPR EHENS SAIGE METAB OLIC PANEL sodium 140 mmol/ L 137-14 5 Not Available [facility] (Lab) [address] [place], [address], 10/24/2024 13:44:48 10/25/19 25 10/24/2024 COMPR EHENS SAIGE METAB OLIC PANEL potassium 3.7 mmol/ L 3.5-5. 1 Not Available [facility] (Lab) [address] [place], [address], 10/24/2024 13:44:48 10/25/19 25 10/24/2024 COMPR EHENS SAIGE METAB OLIC PANEL chloride 106 mmol/ L 98-107 Not Available [facility] (Lab) [address] [place], [address], 10/24/2024 13:44:48 10/25/19 25 10/24/2024 COMPR EHENS SAIGE METAB OLIC PANEL carbon dioxide 28 mmol/ L 22-30 Not Available [facility] (Lab) [address] [facility] [place], [address], 10/24/2024 13:44:48 10/25/19 25 10/24/2024 COMPR EHENS SAIGE METAB OLIC PANEL anion gap 9.7 mmol/ L 14-22 low Not Available [facility] (Lab) [address] [place], [address], 10/24/2024 13:44:48 10/25/19 25 10/24/2024 COMPR EHENS SAIGE METAB OLIC PANEL glucose 84 mg/dL 70-99 Not Available [facility] (Lab) [address] [place], [address], 10/24/2024 13:44:48 10/25/19 25 10/24/2024 COMPR EHENS SAIGE METAB OLIC PANEL BUN 6 mg/dL 8-19 low Not Available [facility] (Lab) [address] [facility] [place], [address], 10/24/2024 13:44:48 10/25/19 25 10/24/2024 COMPR EHENS SAIGE METAB OLIC PANEL creatinine 0.87 mg/dL 0.66-1 .25 Not Available [facility] (Lab) [address] [place], [address], 10/24/2024 13:44:48 10/25/19 25 10/24/2024 COMPR EHENS SAIGE METAB OLIC PANEL GFR >60 Refer ence Range : [place] ge GFR Healt hy Adult : >60 [...] or ethni c subgr oups, such as Hispa nics. Outsi de the valid ated jessica [...] calcu lator is avail able on the [facility] websi te: [email or web address] :[email or web address] reyes/[email or web address] [email or web address] s/kdo qi/gf r_cal culat or Not Available [facility] (Lab) [address] [place], [address], 10/24/2024 13:44:48 10/25/1910/24/2024 COMPR EHENS SAIGE METAB OLIC PANEL alkaline phosphatase 37 U/L 38-126 low Not Available [facility] (Lab) [address] [place], [address], 10/24/2024 13:44:48 10/25/1910/24/2024 COMPR EHENS SAIGE METAB OLIC PANEL alanine aminotransfe rase 19 U/L 0-50 Not Available [facility] (Lab) [address] [place], [address], 10/24/2024 13:44:48 10/25/19 25 10/24/2024 COMPR EHENS SAIGE METAB OLIC PANEL aspartate aminotransfe rase 24 U/L 15-46 Not Available [facility] (Lab) [address] [place], [address], 10/24/2024 13:44:48 10/25/19 25 10/24/2024 COMPR EHENS SAIGE METAB OLIC PANEL bilirubin, total 0.60 mg/dL 0.20-1 .30 Not Available [facility] (Lab) [address] [facility] [place], [address], 10/24/2024 13:44:48 10/25/19 25 10/24/2024 COMPR EHENS SAIGE METAB OLIC PANEL calcium 9.4 mg/dL 8.4-10 .2 Not Available [facility] (Lab) [address] [place], [address], 10/24/2024 13:44:48 10/25/19 25 10/24/2024 COMPR EHENS SAIGE METAB OLIC PANEL total protein 6.7 g/dL 6.3-8. 2 Not Available [facility] (Lab) [address] [place], [address], 10/24/2024 13:44:48 10/25/19 25 10/24/2024 COMPR EHENS SAIGE METAB OLIC PANEL albumin 4.2 g/dL 3.4-5. 0 Not Available [facility] (Lab) [address] [place], [address], 10/24/2024 13:44:48 10/25/19 25 10/24/2024 COMPR EHENS SAIGE METAB OLIC PANEL globulin 2.5 g/dL 2.6-4. 2 low Not Available [facility] (Lab) [address] [place], [address], 10/24/2024 13:44:48 10/25/19 25 10/24/2024 COMPR EHENS SAIGE METAB OLIC PANEL A/G ratio 1.7 ratio 1.0-2. 0 Not Available [facility] (Lab) [address] [place], [address], 10/24/2024 13:44:48 10/25/19 25 10/24/2024 LIPAS E SERUM lipase 145 U/L 23-300 Not Available [facility] (Lab) [address] [place], [address], 10/24/2024 13:44:53 10/25/19 25 10/24/2024 C REACT SAIGE PROTE IN,UL TRA SENS C-reactive protein 0.06 mg/dL 0.0-0. 5 Not Available [facility] (Lab) [address] [place], [address], 10/24/2024 13:53:19 07/05/19 23 06/09/2022 MRI, cervi carlos spine , w/o contr ast No observ ation record ed. [email or web address] Not Available 10/25 10:24:57 07/30/19 23 06/09/2022 MRI, cervi carlos spine , w/o contr ast No observ ation record ed. [email or web address] Not Available 10/25 10:24:58 09/22/19 24 09/22/2023 US, renal No observ ation record ed. [email or web address] [facility] [address] [facility], [place], [address], 11/10/2023 10:13:08 09/22/19 24 09/22/2023 US, renal No observ ation record ed. [email or web address] [facility] Out Patient Lab [address], [place], [address], 01/11/2024 17:12:24 10/26/19 25 10/25/2024 CT, abdom en + pelvi s, w/ contr ast [facility] [address], [place] [address] Patien t Name: HERMAN SANCHEZ Access ion #: [id number] Sex: M : 1965 8 Dictat ed By: Bonilla ma Attend ing Physic jeffrey: FELISA VACA Orderi ng Physic jeffrey: FREDIS CURRY Exam Date: 2024 16:44 PM Exam Name: CT ABDOME N PELVIS W Admitt ing Diagno sis(es ): Examin ation: CT ABDOME N PELVIS W CLINIC AL INDICA TION: Unspec ified abdomi nal pain. COMPAR YG: None. CONTRA ST USED: Intrav enous. TECHNI QUE: A post contra st CT study of the abdome n and pelvis is perfor med after admini strati on of intrav enous contra st medium . The examin ation was perfor med with [address] scan done accord ing to ALARA (As Low as Reason ably Achiev able). Multip lanar recons tructi ons were obtain ed. FINDIN GS: CT ABDOME N: Lung Base: The evalua tion of lung bases demons trates no focal infilt rates or pleura l effusi on. Liver: The liver is normal in size. The portal venous radicl es are normal . There is no intrah epatic biliar y radicl e dilata tion. A simple cyst is seen in the right lobe of the liver. Spleen : The spleen is normal in size and does not show any focal abnorm ality. Gallbl adder: Sludge is seen within the gallbl adder. The common bile duct is not dilate d. Pancre as: The pancre as is normal in size and shape. No focal lesion is seen within . The peripa ncreat ic fat-pl anes are normal . Retrop eriton eum: Both adrena l glands are normal in size and morpho logy. There is no signif icant retrop eriton eal lympha denopa thy. The kidney s show subcen timete r sized cortic al cysts bilate rally. The kidney s are normal in size with no hydron ephros is or renal calcul i. Stomac h and Small Bowel: The bowel loops are unrema rkable . There is no ascite s. Skelet al System : Thorac olumba r spine is unrema rkable . Vessel s: Aorta, IVC and the mesent vidhi vessel s appear unrema rkable . Page 1 [facility] [address] [place] [address] Patien t Name: HERMAN SANCHEZ Access ion #: [id number] Sex: M : 1965 8 Dictat ed By: Bonilla ma Attend ing Physic jeffrey: FREDIS CURRY Orderi Physic jeffrey: FREDIS CURRY Exam Date: 2024 16:44 PM Exam Name: CT ABDOME N PELVIS W Admitt ing Diagno sis(es ): CT PELVIS : Append ix: The append ix is unrema rkable in appear ance. Colon and Large Bowel: Coloni c divert iculos is is noted. Subtle fat strand ing is seen surrou nding the distal descen ding colon and is sugges tive of divert iculit is. No absces s format ion is noted. The ascend ing, transv erse, descen ding, sigmoi d colon and rectum are otherw ise unrema rkable . Bladde r: The urinar y bladde r is unrema rkable . Pelvic Organs : The prosta te is normal in appear ance. No pelvic lympha denopa thy is identi fied. No abnorm al fluid collec tion is seen. IMPRES WALTER: 1. Coloni c divert iculos is with subtle fat strand ing at the distal descen ding colon sugges tive of divert iculit is withou t absces s format ion. 2. Other chroni c and ancill damon findin gs as descri bed above. Kacey onical ly Signed 10/26/19 18:21 Jim Erazo onical ly Signed by: Bonilla ma at 2024 18:21: 00 PM Page 2 [email or web address] [facility] (Imaging) [address] [place], [address], 02/09/2025 16:50:35 Result Notes Documentation Provider Name and Address Organization Details Recorded Time Ct, Abdomen + Pelvis, W/ Contrast : [facility] [address] [place] [address] Patient Name: HERMAN AMARO Sex: M : 1965 Dictated By: Bonilla Lopez Attending Physician: FELISA HAYES Ordering Physician: FREDDY CURRY Exam Date: 10/25/2024 16:44 PM Exam Name: CT ABDOMEN PELVIS W Admitting Diagnosis(es): Examination: CT ABDOMEN PELVIS W CLINICAL INDICATION: Unspecified abdominal pain. COMPARISON: None. CONTRAST USED: Intravenous. TECHNIQUE: A post contrast CT study of the abdomen and pelvis is performed after administration of intravenous contrast medium. The examination was performed with [address] scan done according to ALARA (As Low as Reasonably Achievable). Multiplanar reconstructions were obtained. FINDINGS: CT ABDOMEN: Lung Base: The evaluation of lung bases demonstrates no focal infiltrates or pleural effusion. Liver: The liver is normal in size. The portal venous radicles are normal. There is no intrahepatic biliary radicle dilatation. A simple cyst is seen in the right lobe of the liver. Spleen: The spleen is normal in size and does not show any focal abnormality. Gallbladder: Sludge is seen within the gallbladder. The common bile duct is not dilated. Pancreas: The pancreas is normal in size and shape. No focal lesion is seen within. The peripancreatic fat-planes are normal. Retroperitoneum: Both adrenal glands are normal in size and morphology. There is no significant retroperitoneal lymphadenopathy. The kidneys show subcentimeter sized cortical cysts bilaterally. The kidneys are normal in size with no hydronephrosis or renal calculi. Stomach and Small Bowel: The bowel loops are unremarkable. There is no ascites. Skeletal System: Thoracolumbar spine is unremarkable. Vessels: Aorta, IVC and the mesenteric vessels appear unremarkable. Page 1 [facility] [address] [place] [address] Patient Name: HERMAN AMARO Sex: M : 1965 Dictated By: Bonilla Lopez Attending Physician: FREDDY CURRY Ordering Physician: FREDDY CURRY Exam Date: 10/25/2024 16:44 PM Exam Name: CT ABDOMEN PELVIS W Admitting Diagnosis(es): CT PELVIS: Appendix: The appendix is unremarkable in appearance. Colon and Large Bowel: Colonic diverticulosis is noted. Subtle fat stranding is seen surrounding the distal descending colon and is suggestive of diverticulitis. No abscess formation is noted. The ascending, transverse, descending, sigmoid colon and rectum are otherwise unremarkable. Bladder: The urinary bladder is unremarkable. Pelvic Organs: The prostate is normal in appearance. No pelvic lymphadenopathy is identified. No abnormal fluid collection is seen. IMPRESSION: 1. Colonic diverticulosis with subtle fat stranding at the distal descending colon suggestive of diverticulitis without abscess formation. 2. Other chronic and ancillary findings as described above. Electronically Signed 10/25/2024 18:21 Jessica Crystal Page 2 Kandy Almazan RN null, [facility] 02/09/2025 16:50:35 Problems Name Problem SNOMED Code Status Onset Date Resolution Date Notes Provider Name and Address Organization Details Recorded Time Cervical radiculopathy 85382771 Active 2022 Not Available [facility] 3 01:47:36 Pain of hip region 35794459 Active 2022 SELENE Kelly, [facility] 3 09:29:02 Hypercholester olemia 82764963 Active 2022 Freddy Curry MD [address] [place] [address], [id number] , [facility] 3 18:25:40 Problem Notes None recorded. Procedures Surgical History Date Name Laterality Status Provider Name and Address Organization Details Recorded Time Cyst Removal completed Not Available [facility] 06/26/2022 01:47:02 Imaging Results None recorded. Procedure Notes None recorded. Medical Equipment None Reported. Allergies Allergen ID Allergen Name Allergen Category Reaction Reaction Severity Criticality Documentation Date Start Date Code Code System Note Provider Name and Address Organization Details Recorded Time 21236 erythromy ifrah medicatio n rash severe Not available 06/26/2022 4053 RxNorm Not Available [facility] 3 01:48:33 Medications Name Sig Start Date Stop Date Status Note LastModified by Organization Details LastModified Time Medrol (Bryce) 4 mg tablets in a dose pack take as directed 05/07 completed Not Available Not Available Not Available Vitals Date Recorded Body mass index (BMI) Body height Heart rate Body temperature Body weight Systolic And Diastolic Provider Name and Address Organization Details Last Updated DateTime 3 23.4 kg/m2 177.8 cm 67 /min 98.7 [degF] 63677.5 6 g 112/76 mm[Hg] Not Available [facility] 3 01:47:30 Date Recorded Body height Body mass index (BMI) Body weight Body temperature Heart rate Systolic And Diastolic Provider Name and Address Organization Details Last Updated DateTime 3 177.8 cm 22.8 kg/m2 29478.1 9 g 97.8 [degF] 62 /min 116/72 mm[Hg] Kim brush RN [place] [facility] [place] [employer] [facility] 3 10:29:21 Date Recorded Body mass index (BMI) Body height Heart rate Body temperature Body weight Systolic And Diastolic Provider Name and Address Organization Details Last Updated DateTime 2 22.8 kg/m2 177.8 cm 80 /min 97.7 [degF] 04682.1 9 g 110/76 mm[Hg] Not Available [facility] 3 01:47:30 Social History Question Answer Notes LastModified by Organizat ion Details LastModified Time Tobacco Smoking Status Never Smoker Not Available [facility] 06/26/2022 01:46:57 Do You Have An Advance Directive? No [id number] Information not available 06/26/2022 What Is Your Level Of Caffeine Consumption? None MIGRATION.[id number] 8286 Information not available 06/26/2022 In The 14 Days Before Symptom Onset, Have You Had Close Contact With A Laboratory-confir med COVID-19 While That Case Was Ill? No [id number] Information not available 06/26/2022 In The 14 Days Before Symptom Onset, Have You Had Close Contact With A Person Who Is Under Investigation For COVID-19 While That Person Was Ill? No [id number].[id number] 8846 Information not available 06/26/2022 What Type Of Diet Are You Following? REGULAR MIGRATION.140251 6709 Information not available 06/26/2022 What Is The Highest Grade Or Level Of School You Have Completed Or The Highest Degree You Have Received? [id number] MIGRATION.876911 1684 Information not available 06/26/2022 Have There Been Any Changes To Your Family Or Social Situation? No MIGRATION.[id number] 5946 Information not available 06/26/2022 What Is The Fluoride Status Of Your Home? Unknown MIGRATION.[id number] 0214 Information not available 06/26/2022 Do You Use Insect Repellent Routinely? No MIGRATION.556448 8950 Information not available 06/26/2022 [facility] You [facility]? [facility] MIGRATION.[id number] 9501 Information not available 06/26/2022 Do You Have A Medical Power Of Political Researcher? No MIGRATION.867905 0761 Information not available 06/26/2022 What Was The Date Of Your Most Recent Tobacco Screening? 11/05/2022 [email or web address] Information not available 11/05/2022 Have You Ever Been Counseled For Unhealthy Alcohol Use? No MIGRATION.306116 1263 Information not available 06/26/2022 Do You Have Any Pets? Yes MIGRATION.307386 5591 Information not available 06/26/2022 What Is Your Relationship Status? MIGRATION.[id number] 4586 Information not available 06/26/2022 Do You Have Smoke And Carbon Monoxide Detectors In Your Home? Yes MIGRATION.[id number] 6037 Information not available 06/26/2022 Are You Passively Exposed To Smoke? No MIGRATION.185445 0931 Information not available 06/26/2022 Are There Any Smokers In Your House? No MIGRATION.664925 2768 Information not available 06/26/2022 Do You Use Sunscreen Routinely? No MIGRATION.814498 9108 Information not available 06/26/2022 Has Tobacco Cessation Counseling Been Provided? No MIGRATION.067129 6235 Information not available 06/26/2022 Have You Recently Traveled Abroad? No MIGRATION.562709 8400 Information not available 06/26/2022 Do You Have Any Dietary Restrictions? No MIGRATION.462807 0447 Information not available 06/26/2022 Sex: Male Functional Status Question Answer Note LastModified by Organizat ion Details LastModified Time Do you use any illicit or recreational drugs? No MIGRATION.688152 5455 Information not available 06/26/2022 Do you or have you ever used any other forms of tobacco or nicotine? No MIGRATION.281855 8586 Information not available 06/26/2022 What is your level of alcohol consumption? 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 Occasional MIGRATION.232718 9203 Information not available 06/26/2022 Mental Status Question Answer Note LastModified by Organizat ion Details LastModified Time Do you feel stressed (tense, restless, nervous, or anxious, or unable to sleep at night)? [id number] [id number] Information not available 06/26/2022 Family History Relationship Description Onset Age of this Age Resolved Age Notes LastModified by Organization Details LastModified Time Father Family history of malignant neoplasm [id number] Not available 06/26/2022 01:47:05 Paternal Grandfather Family history of malignant neoplasm MIGRATION.[id number] Not available 06/26/2022 01:47:05 Paternal Grandmother Family history of malignant neoplasm MIGRATION.892 [id number] Not available 06/26/2022 01:47:05 Maternal Grandmother Family history of malignant neoplasm MIGRATION.575 [id number] Not available 06/26/2022 01:47:05 Maternal Grandfather Family history of malignant neoplasm MIGRATION.146 [id number] Not available 06/26/2022 01:47:05 Medical History Condition Response HAVE YOU BEEN HOSPITALIZED OR SEEN IN [facility] IN THE PAST YEAR ? N Past Encounters Encounter ID Performer Location Encounter Start Date Encounter Closed Date Diagnosis/Indication Diagnosis SNOMED-CT Code Diagnosis ICD10 Code Diagnosis IMO Codes Diagnosis Note [id number] Freddy Curry MD [facility] [place] [address] [facility] [address] [address] 03/24/2022 00:00:00 05/04/2022 17:39:32 [id number] Freddy Curry MD [facility] [place] [facility] [address] [facility] [address] [address] 05/07/2022 00:00:00 05/10/2022 17:21:25 [id number] Freddy Curry MD [facility] [address], [facility] [address] [place] [address] 11/05/2022 10:17:23 11/05/2022 11:04:45 [facility] [id number] E78.00 Health Concerns Section Related Observation LastModified by Organization Detai ls LastModified Time None Recorded Concern Status LastModified by Organization Details LastModified Time None Recorded Advance Directives Directive N: Payers Insurance Date Sequence Insurance Name Policy Number Policy Terry Covered Member ID Terry Member ID Guarantor Name 06/26/2022 1 [facility] Herman Prem [id number] Herman Amaro Notes Date Note Type Note Provider Name and Address Organization Details Recorded Time 11/05/2022 text/html Did see the orthopedist told him basically in no surgical intervention at this time he is trying to follow a low-fat diet feels Freddy Curry MD [address], [address], [place], [address], [place] [facility] 11/06/2022 18:26:03
[2025-02-10 07:12] VITALS: BP 129/71; PULSE 56; RESP 18; TEMP 36.1; O2SAT 100
--- NOTE | 2025-02-10 07:18 | WPDANESEPPF ---
Anes - Initial Pre Proc Eval Procedure: Operation Date: 02/10/25 08:30 Proposed Procedures p Diagnostic Colonoscopy - Saul Llamas MD Date/Time: 02/10/25 07:18 Surgeon: Saul Llamas MD Pre Op Diagnosis: Noninfective gastroenteritis & colitis, unspecifie Patient Data Age: 59 Gender: M Height: 1.78 m Weight: 72.6 kg Allergies Allergy/AdvReac Type Severity Reaction Status Date / Time erythromycin base Allergy Mild Rash Verified 02/10/25 07:11 Home Medications ?Medication ?Instructions ?Recorded ?Confirmed ?Type multivitamin (Daily Multi-Vitamin 1 tablet PO DAILY 02/01/25 02/01/25 History tablet) Patient hx anesthesia problems: none Family hx anesthesia problems: none Results Review: All pre-operative results and documents have been reviewed as part of the pre-operative evaluation. [facility], [facility] Past Medical History Medical History (Updated 02/09/25 @ 13:21 by Chandrakant Li DO) BPH (benign prostatic hyperplasia) Hyperlipidemia Social History Social History (System 11/24/22 @ 16:23 by Hany Grubbs) Smoking status: Never smoker Alcohol intake: current Drinks per week: 3 Substance use: never Substance use type: does not use Living arrangements: with family Spiritual care concerns: No Anes - Eval Final PreProcedure Day of Procedure 02/10/25 07:18 Patient weight: normal Heart: regular rate and rhythm Lungs: clear to auscultation and normal air movement Airway: Mallampati scale class II Neurological: alert and oriented Last oral intake: >/= 8 hours ASA classification: II Emergent: no Anesthetic plan: proceed Anesthesia type and monitoring: general GIVS and standard monitoring Results Review: All pre-operative results and documents have been reviewed as part of the pre-operative evaluation. Informed Consent: The patient's anesthetic plan and its attendant risks and benefits were discussed with the patient/family/POA. Questions were solicited and answers provided to the satisfaction of the patient/family/POA.
[2025-02-10] MEDS: LACTATED RINGERS 1,000 ML 150 ML IV CONT (07:42)
--- NOTE | 2025-02-10 08:31 | PM.IMHP ---
H&P: HPI History of Present Illness Date/Time: 02/10/25 08:31 Chief Complaint: Rectal bleeding Narrative: The patient is referred for colonoscopy for the investigation of intermittent rectal bleeding, minor amounts. He denies abdominal pain, tenesmus, urgency, diarrhea or mucous in stools . Review of Systems Review of Systems: All systems reviewed & are unremarkable except as noted in HPI and below PMFSH Past Medical History Medical History (Updated 02/10/25 @ 08:32 by Saul Llamas MD) BPH (benign prostatic hyperplasia) Hyperlipidemia Social History Social History (System 11/24/22 @ 16:23 by Hany Grubbs) Smoking status: Never smoker Alcohol intake: current Drinks per week: 3 Substance use: never Substance use type: does not use Living arrangements: with family Spiritual care concerns: No Meds Home Medications and Allergies Home Medications ?Medication ?Instructions ?Recorded ?Confirmed ?Type multivitamin (Daily Multi-Vitamin 1 tablet PO DAILY 02/01/25 02/01/25 History tablet) Allergies Allergy/AdvReac Type Severity Reaction Status Date / Time erythromycin base Allergy Mild Rash Verified 02/10/25 07:11 Vital Signs Vital Signs - 24 hr 02/10/25 07:12 Temperature 97 F L Pulse Rate 56 L Respiratory Rate 18 Blood Pressure 129/71 Pulse Oximetry 100 Oxygen Delivery Room Air Exam Const: General: cooperative and healthy appearing Resp: Effort & Inspection: normal respiratory effort and able to speak in complete sentences Auscultation: clear to auscultation bilaterally Cardio: Rate: regular rate Rhythm: regular rhythm GI: Inspection: normal to inspection GI Palp: No No hepatosplenomegaly present Auscultation: normal bowel sounds Rectal Exam: deferred Skin: General skin exam: normal color Psych: Appearance: grossly normal Mental Status: mental status grossly normal Assessment and Plan Assessment and plan (1) PRB (rectal bleeding): Code(s): K62.5 - Hemorrhage of anus and rectum Status: Acute Assessment and Plan: The patient is deemed a good candidate for the procedure. Consent signed. Will proceed.
[2025-02-10 09:01] VITALS: BP 93/53; PULSE 57; RESP 15; O2SAT 100
[2025-02-10 09:11] VITALS: BP 120/76; PULSE 62; RESP 25; O2SAT 100
[2025-02-10 09:21] VITALS: BP 115/83; PULSE 53; RESP 17; O2SAT 100
== END 2025-02-10 09:31 | disposition home or self-care (01) ==
PROVIDERS: PCP Internal Medicine; Referring Provider Internal Medicine; Visit Provider Internal Medicine Gastroenterology
PROC: 0DJD8ZZ Inspection of Lower Intestinal Tract, Via Natural or Artificial Opening Endoscopic (ICD-10-PCS; CPT 45378; principal; 2025-02-10 08:30)
DX: K62.5 Hemorrhage of anus and rectum (principal); K64.8 Other hemorrhoids
CPT/HCPCS: 45378; J2003; J2704; J7120